=== PATIENT | male | born 1940 ===

== ENCOUNTER → 2016-07-28 | Outpatient (REF) | payer MEDICARE ==
[2016-07-28 13:01] LABS: BASOPHILS % (AUTO) 1 % (0-2); EOSINOPHILS # (AUTO) 0.4 10^3uL; EOSINOPHILS % (AUTO) 7 % (0-4); LYMPHOCYTES # (AUTO) 1.7 X10^3; MEAN CORPUSCULAR HGB CONC 33.3 g/dL (31.0-37.0); MEAN CORPUSCULAR VOLUME 97 FL (80-100); MONOCYTES # (AUTO) 0.8 X10^3; MONOCYTES % (AUTO) 12 % (3-11); NEUTROPHILS # (AUTO) 3.5 X10^3; NEUTROPHILS % (AUTO) 54 % (51-67); PLATELET COUNT 567 10^3uL (150-450); WHITE BLOOD COUNT 6.48 10^3uL (4.0-11.0)
[2016-07-28 13:05] LABS: MEAN CORPUSCULAR HEMOGLOBIN 32.2 PG (26.0-34.0)
== END ==
LOC: LAB 12:15
PROVIDERS: ATTEND Family Medicine
DX: D47.3 Essential (hemorrhagic) thrombocythemia (principal); I10 Essential (primary) hypertension; Z86.73 Personal history of transient ischemic attack (TIA), and cerebral infarction without residual deficits
CPT/HCPCS: 82728; 85025